=== PATIENT | male | born 1975 | race Hispanic/Latino ===

== ENCOUNTER 2018-01-15 11:40 | Emergency (ER) | payer SELFPAY ==
[~2018-01-15] VITALS: Ht 165.1 cm; Wt 56.0 kg
[~2018-01-15 11:40] MED LIST: NO MEDS
[2018-01-15] MEDS ORDERED: LAMISIL AT1 % EX (13:08)
[2018-01-15] MEDS ORDERED: TERBINAFINE250 M1 PO (13:08)
[2018-01-15] MEDS ORDERED: CEPHALEXIN500 M1 PO (13:08)
[2018-01-15 13:15] VITALS: BP 134/77
== END 2018-01-15 13:32 | disposition home or self-care (01) | DRG 607 ==
LOC: ED 11:40
DX: B35.4 Tinea corporis (principal)